=== PATIENT | female | born 1980 | race African-American/Black ===

== ENCOUNTER → 2016-12-26 | Outpatient (REF) | payer OTHER | END | disposition home or self-care (01) | LOC: M SFHCLERA 17:55 | PROVIDERS: ATTEND Nurse Practitioner Family | DX: J06.9 Acute upper respiratory infection, unspecified (principal) ==

== ENCOUNTER 2017-05-16 04:41 | Inpatient (IN) | payer OTHER ==
[2017-05-16] VITALS (9 sets, daily range): BP systolic 108–143; BP diastolic 58–74
[~2017-05-16] VITALS: Ht 182.9 cm; Wt 100.0 kg
[2017-05-16] MEDS ORDERED: OXYTOCIN 30 UNITS IN 0.9% NaCl 500ML IV BAG (J2590) As Ordered ONE (04:57)
[2017-05-16] MEDS ORDERED: ALBU83IN INH (05:12)
[2017-05-16] MEDS ORDERED: PRENTAB9 PO (05:12)
[2017-05-16] MEDS ORDERED: ZYRT10CA PO (05:13)
[2017-05-16] MEDS ORDERED: AZEL0.1S3 (05:13)
[2017-05-16] MEDS ORDERED: IRON65TA PO (05:13)
[2017-05-16 05:28] LABS: MEAN CORPUSCULAR HEMOGLOBIN 31.1 pg (27.0-33.0); MEAN CORPUSCULAR HGB CONC 34.1 g/dl (32.0-36.5); RED CELL DISTRIBUTION WIDTH 14.4 % (11.5-14.5); WHITE BLOOD COUNT 6.5 K/mm3 (4.0-10.0)
[2017-05-16] MEDS ORDERED: OXYTOCIN DRIP 30 UNITS in APPROPRIATE DILUENT 1 EA IV SCH (06:03)
[2017-05-16] MEDS ORDERED: DIBUCAINE 1% OINTMENT 30GM TOP PRN (06:15)
[2017-05-16] MEDS ORDERED: PROMETHAZINE 25 MG TAB PO PRN (06:15)
[2017-05-16] MEDS ORDERED: RHOGAM 300 MCG (1500 IU) INJ (J2790) IM SCH (06:15)
[2017-05-16] MEDS ORDERED: LIDOCAINE 1% MDV INJ 50 ML VIAL INFIL ONE (06:15)
[2017-05-16] MEDS ORDERED: METHYLERGONOVINE MALEATE 0.2 MG/ML VIAL (J2210) IM PRN (06:15)
[2017-05-16] MEDS ORDERED: MEASLES,MUMPS,RUBELLA VACCINE INJ (MMR-II) (90707) SC SCH (06:15)
[2017-05-16] MEDS ORDERED: ONDANSETRON 4MG/2ML VIAL (J2405) IV PRN (06:15)
[2017-05-16] MEDS: IBUPROFEN 800 MG TAB PO PRN ×3 (07:57→23:34)
[2017-05-16] MEDS: PRENATAL VITAMINS CHEWABLE TABLET PO SCH (10:05)
[2017-05-16] MEDS: DOCUSATE SODIUM 100 MG CAP PO SCH ×2 (10:05→20:03)
[2017-05-16] MEDS: ACETAMINOPHEN 500 MG TAB PO PRN (19:50)
[2017-05-17 06:19] VITALS: BP 122/81
[2017-05-17] MEDS: ACETAMINOPHEN 500 MG TAB PO PRN (06:26)
[2017-05-17] MEDS: PRENATAL VITAMINS CHEWABLE TABLET PO SCH (08:22)
[2017-05-17] MEDS: DOCUSATE SODIUM 100 MG CAP PO SCH ×2 (08:23→19:43)
[2017-05-17] MEDS: IBUPROFEN 800 MG TAB PO PRN ×2 (11:42→19:44)
--- NOTE | 2017-05-17 16:07 | DSES ---
DATE OF ADMISSION: 05/16/2017 DATE OF DISCHARGE: 05/17/2017 This lady is a 37-year-old 5, now para 5 admitted in spontaneous labor at 39 and 2 weeks gestation, delivered a live male infant weighing 9 pounds, 15 ounces, 4502 grams, scores of 8 and 9 at one and five minutes respectfully. Risk factors are advanced maternal age (AMA), grand multiparity, and a first-degree repair. On her first day, we discussed phlebitis, cystitis, mastitis, endometritis and cellulitis, diet, exercise, pain management, perineal, breast and wound care. Hemoglobin 12.7, hematocrit 37.2, platelets are 105. Discharge vital signs: Blood pressure 122/81, respirations 18, pulse 76 and temperature 97.5. The rest of the examination is unremarkable. She is normocephalic, atraumatic. Neck: Full range of motion. Pupils are equal and reactive to light. Distal pulses symmetric. No evidence of deep vein thrombosis (DVT), pulmonary embolism (PE) or superficial phlebitis. No wheezes or rhonchi. No costovertebral angle (CVA) tenderness. Uterus is nontender, uterus two below. Four quadrant bowel sounds are noted. Perineum is healing. No rashes, lesions or pruritus. No arthralgia or myalgia. No complaints of cough, wheezes, shortness of breath or dyspnea on exertion. No chest pain, not bleeding. Neurologically complete. No incontinency, urgency or frequency. No nausea, vomiting, diarrhea or constipation. Her past medical, surgical and family history are unremarkable. SOCIAL HISTORY: She does not smoke, drink or abuse drugs. She is to a soldier and there is no domestic violence. In summary, we have an advanced maternal age (AMA), grand multiparity who delivered a live male for planned discharge. Followup in six weeks' time. Discussion about control will take place at that time.
[2017-05-17 18:42] VITALS: BP 138/85
[2017-05-17] MEDS ORDERED: COLA100C5 PO (20:18)
[2017-05-17] MEDS ORDERED: ACET50TA PO (20:18)
[2017-05-17] MEDS ORDERED: ADVI200C5 PO (20:18)
[2017-05-17] MEDS ORDERED: DIBU1OIN TOP (20:18)
== END 2017-05-17 21:30 | disposition home or self-care (01) | DRG 775 ==
LOC: M LDO 04:41 → M LDI 04:49 → M OBS 09:15
PROVIDERS: ADMIT Obstetrics & Gynecology; ATTEND Obstetrics & Gynecology
PROC: 10E0XZZ Delivery of Products of Conception, External Approach (ICD-10-PCS; principal; 2017-05-16)
PROC: 0HQ9XZZ Repair Perineum Skin, External Approach (ICD-10-PCS; 2017-05-16)
DX: O99.52 Diseases of the respiratory system complicating childbirth (principal); J45.909 Unspecified asthma, uncomplicated; H91.93 Unspecified hearing loss, bilateral; D64.9 Anemia, unspecified; Z79.899 Other long term (current) drug therapy; O70.0 First degree perineal laceration during delivery; Z37.0 Single live birth; Z3A.39 39 weeks gestation of pregnancy; O99.02 Anemia complicating childbirth; O26.893 Other specified pregnancy related conditions, third trimester; O99.89 Other specified diseases and conditions complicating pregnancy, childbirth and the puerperium

== ENCOUNTER → 2017-12-09 | Outpatient (REF) | payer OTHER | LOC: M SFHCLERA 16:32 | DX: J06.9 Acute upper respiratory infection, unspecified (principal); Z20.828 Contact with and (suspected) exposure to other viral communicable diseases ==

== ENCOUNTER → 2018-08-24 | Outpatient (REF) | payer OTHER | LOC: M SFHCLERA 10:31 | DX: J02.9 Acute pharyngitis, unspecified (principal) ==